=== PATIENT | female | born 1995 ===

== ENCOUNTER 2017-03-18 17:28 | Emergency (ER) | payer OTHER ==
[2017-03-18 15:18] VITALS: BMI 26.4
[2017-03-18 19:00] LABS: URINE BILIRUBIN NEGATIVE (NEGATIVE); URINE BLOOD NEGATIVE (NEGATIVE); URINE COLOR Straw (YELLOW); URINE GLUCOSE (UA) NORMAL (Normal); URINE KETONE TRACE mg/dL (NEGATIVE); URINE LEUKOCYTE ESTERASE NEG Leu/uL (Negative); URINE PROTEIN NEGATIVE (NEGATIVE); URINE UROBILINOGEN NORMAL mg/dL (0.2-1.0)
--- NOTE | 2017-03-18 19:41 | OBHP ---
Datetime: 03/18/2017 17:47 IP Admit Plan: Observation/Evaluation Admit Comment, IP Provider: 21 y.o. , LMP 11/20/16, JOSEY 08/14/17, EGA 18w 5d - transferred fr [facility] with c/o LAP onset 1100 hours, pain scale 8/10, pressure-like, intermittent. No al leviating or precipitating factors. Also, onset of LBP 1300 hours, sharp, stabbing, pain scale 10/10; not present at time of examination/ evaluation. (+) FM; denies LOF, VB. care: [facility]/ Epi; has had 3 visits. Next visit 03/21/17. Noted for treatment of UTI x 1 earlier P Ob: x 3: 2009, male, 6lb 3oz, [facility]; 2011, female, 7lb 10oz, [facility]; 2014, female, 6lb 11oz, [facility] [place]; no complications P MACHINE DRILLER: 9 x monthly x 3. (+) GC and chlamydia, 2011 PMH: H/O seizure - first diagnosed age 6/7. Was on anti-epileptic until 1 month ago. "I told him t he medication I was on was making me have more seizure; stopped 02/28/17 ... He's supposed to change i t". PSH: deenis NKDA Meds: PNV Soc Hx: denies tobacco, illicit drug or EtOH use. Lives in a [facility]/Child Assisted - FOB is involve d; does not live with patient. Unemployed. Fam Hx: Mother alive 42 y.o. no med issues. Father alive 58 y.o. ?myeloma?, alc abuse. PGM - Breas at cancer P.E.: as above. WD in NAD. Awake, alert, oriented to time, person and place. Pleasant and cooperat stacy. Assessment: 21 y.o. P3, 18w 5d, abdominal cramps - specullum fidings suggestive of bacterial vagin itis and vaginal candidiasis. FHR auscultated. Clinically stable. Plan: 1) Discharge home 2) Rx: Flagyl 500 mg 1 tab p.o. BID x 7days 3) Rx: Terazol 3 1 appl pV QHS x 3 days 4) Keep appointments Addendum: U/A negative Pelvic Type - PN: Adequate Extremities - PN: Normal Abdomen - PN: Normal Back - PN: Normal Breast - PN: Not Done Lungs - PN: Normal Heart - PN: Normal Thyroid - PN: Not Done Neurologic - PN: Normal HEENT - PN: Normal General - PN: Normal FHR - Baseline A Provider: 160 Contraction Comments Provider: none Comments, ACOG Physical Exam: Skin: warm, dry, intact HEENT: low set ears Back: no CVA tenderness Abdomen: gravid. Soft. Minimal left sided discomfort to deep palpation. Non tender in all other qu adrants. Fundal height 20 weeks Spec: moderate amount of thick, yellow/green discharge. No odor Extremities: no calf tenderness All other systems reviewed and are negative Gestation - Est Wks by US: 18w 5d EGA AdmitDate IP: 18.5 Vital Signs Provider: Reviewed; Within Normal Limits IP Chief Complaint: Maternal discomfort Dilatation, Provider: 0 Effacement, Provider: 0 Genitourinary Exam: Normal
== END 2017-03-18 19:32 | disposition home or self-care (01) ==
LOC: C.EROB 17:28
DX: O26.892 Other specified pregnancy related conditions, second trimester (principal); N89.8 Other specified noninflammatory disorders of vagina; R10.30 Lower abdominal pain, unspecified; Z3A.18 18 weeks gestation of pregnancy

== ENCOUNTER 2018-10-15 11:01 | Emergency (ER) | payer MEDICAID ==
[2018-10-15 11:02] VITALS: BMI 26.4
[2018-10-15 11:20] VITALS: TEMP 98.7
--- NOTE | 2018-10-15 11:34 | C.PDOC ---
History Of Present Illness 23 y/o female presents to the ED complaining of abdominal pain for the past week. Patient states she is on depo-provera and her last injection was in July. Reports she was scheduled to receive her next depo shot today but due to the cramping, decided to come to the ED instead. Otherwise patient denies any fevers, chills, vomiting, diarrhea, dysuria, or bowel/bladder incontinence. No recent vaginal bleeding. Time Seen by Provider: 10/15/18 11:22 Chief Complaint (Nursing): Abdominal Pain History Per: Patient History/Exam Limitations: no limitations Onset/Duration Of Symptoms: Days Current Symptoms Are (Timing): Still Present Severity: Mild Location Of Pain/Discomfort: Suprapubic Quality Of Discomfort: Cramping Abnormal Vaginal Bleeding: No Past Medical History Reviewed: Historical Data, Nursing Documentation, Vital Signs Vital Signs: Last Vital Signs Temp 98.7 F 10/15/18 11:16 Pulse 80 10/15/18 11:16 Resp 18 10/15/18 11:16 BP 116/44 L 10/15/18 11:16 Pulse Ox 98 10/15/18 11:16 - Medical History PMH: Seizures (since age 6; last seizure 2011) - [facility] Procedures OTHER SKIN & SUBQ I D (09/22/13) Family History: States: Unknown Family Hx - Social History Hx Tobacco Use: No Hx Alcohol Use: No Hx Substance Use: No - Immunization History Hx Tetanus Toxoid Vaccination: No Hx Influenza Vaccination: No Hx Pneumococcal Vaccination: No Review Of Systems Except As Marked, All Systems Reviewed And Found Negative. Constitutional: Negative for: Fever, Chills Gastrointestinal: Positive for: Abdominal Pain (cramping). Negative for: Nausea, Vomiting, Diarrhea, Hematochezia Genitourinary: Negative for: Dysuria, Frequency, Incontinence, Hematuria, Vaginal Bleeding Physical Exam - Physical Exam Appears: Non-toxic, No Acute Distress Skin: Warm, Dry Head: Atraumatic, Normacephalic Eye(s): bilateral: Normal Inspection, PERRL, EOMI Oral Mucosa: Moist Neck: Normal ROM Chest: Symmetrical Cardiovascular: Rhythm Regular, No Murmur Respiratory: Normal Breath Sounds, No Accessory Muscle Use Gastrointestinal/Abdominal: Soft, No Tenderness, No Distention, No Guarding Back: No CVA Tenderness Extremity: Normal ROM Extremity: Bilateral: Atraumatic, Normal Color And Temperature Neurological/Psych: Oriented x3, Normal Speech Gait: Steady ED Course And Treatment - Laboratory Results Result Diagrams: 10/15/18 12:15 10/15/18 12:15 Lab Interpretation: Normal Urine POC: Negative O2 Sat by Pulse Oximetry: 98 (RA) Pulse Ox Interpretation: Normal Progress Note: labs and urine ordered. Treated with ativan for possible seizue. Patient reports she stopped her keppra a few months ago. Treated wit keppra 1000 mg PO. On re-evaluation lungs clear in no distress. Patient advised to follow up with clinic to evaluate seizure disorder Reassessment Condition: Improved Medical Decision Making Medical Decision Making: Plan: Urine, u preg, and blood work ordered. Disposition Counseled Patient/Family Regarding: Studies Performed, Diagnosis, Need For Foll owup, Rx Given - Disposition Referrals: [facility] [Outside] [facility] [Outside] Disposition: HOME/ ROUTINE Disposition Time: 14:30 Condition: STABLE Prescriptions: Levetiracetam [Keppra] 500 mg PO BID #60 tablet Instructions: Seizures, Adult (DC), Acute Pelvic Pain (DC) Forms: [employer] (Kyrgyz) - POA Present On Arrival: None - Clinical Impression Clinical Impression: Abdominal pain - PA / VICE PRESIDENT FIXED INCOME / Resident Statement MD/DO has reviewed & agrees with the documentation as recorded. - Scribe Statement The provider has reviewed the documentation as recorded by the Scribe (Kristel De Santiago) All medical record entries made by the Scribe were at my direction and personally dictated by me. I have reviewed the chart and agree that the record accurately reflects my personal performance of the history, physical exam, medical decision making, and the department course for this patient. I have also personally directed, reviewed, and agree with the discharge instructions and disposition.
[2018-10-15 12:21] LABS: BASO % 0.3 % (0.0-2.0); EOS % 0.5 % (0.0-4.0); HEMOGLOBIN 13.3 g/dL (11.0-16.0); LYMPH # 1.8 K/uL (1.0-4.3); MEAN CELL VOLUME 83.7 fL (81.0-99.0); MEAN CORPUSCULAR HEMOGLOBIN 28.6 pg (27.0-31.0); MEAN CORPUSCULAR HGB CONC 34.1 g/dL (33.0-37.0); MEAN PLATELET VOLUME 8.6 fL (7.2-11.7); MONO # 0.3 K/uL (0.0-0.8); MONO % 5.6 % (0.0-10.0); NEUT # 3.9 K/uL (1.8-7.0); NEUT % 63.6 % (50.0-75.0); RBC 4.66 Mil/uL (3.80-5.20); RED CELL DISTRIBUTION WIDTH 13.2 % (11.5-14.5); WHITE BLOOD COUNT 6.1 K/uL (4.8-10.8)
[2018-10-15 12:30] LABS: SQUAMOUS EPITHIAL 9 /hpf (0-5); URINE BACTERIA OCC (<OCC); URINE BILIRUBIN NEGATIVE (NEGATIVE); URINE BLOOD NEGATIVE (NEGATIVE); URINE CLARITY Hazy (Clear); URINE COLOR Yellow (YELLOW); URINE GLUCOSE (UA) NORMAL (Normal); URINE PROTEIN NEGATIVE (NEGATIVE); URINE UROBILINOGEN NORMAL mg/dL (0.2-1.0)
[2018-10-15 12:32] LABS: HCG,QUALITATIVE URINE NEGATIVE (NEGATIVE)
[2018-10-15 12:37] LABS: URINE LEUKOCYTE ESTERASE 3+ Leu/uL (Negative)
[2018-10-15 12:51] VITALS: BP 126/74; PULSE 73; RESP 20
[2018-10-15 13:23] LABS: ALB/GLOB RATIO 1.5 (1.0-2.1); ALBUMIN 5.1 g/dL (3.5-5.0); AST/SGOT 29 U/L (14-36); BLOOD UREA NITROGEN 11 mg/dL (7-17); CALCIUM 10.1 mg/dl (8.6-10.4); GFR NON-AFRICAN AMERICAN > 60
[2018-10-15 13:24] LABS: ALT/SGPT 34 U/L (9-52)
[2018-10-15 14:23] VITALS: O2SAT 98
== END 2018-10-15 15:09 | disposition home or self-care (01) ==
LOC: C.ER 11:01
DX: R10.9 Unspecified abdominal pain (principal)
CPT/HCPCS: 80053; 81001; 84703; 85025; 96374; 99284; J2060

== ENCOUNTER 2018-12-10 11:02 | Emergency (ER) | payer MEDICAID ==
[2018-12-10 11:02] VITALS: BMI 26.4
[2018-12-10 11:25] VITALS: RESP 18; O2SAT 100
[2018-12-10] MEDS ORDERED: Sodium Chloride 0.9% 1,000 ML IV ONE (12:01)
[2018-12-10] MEDS ORDERED: Sodium Chloride 0.9% 1,000 ML ONE (12:18)
--- NOTE | 2018-12-10 12:31 | C.PDOC ---
History Of Present Illness 23 year old female, whose past medical history includes seizures, presents to the ED for evaluation of neck and lower back pain which began after she had a seizure yesterday. Patient states she had a seizure while in the shower, causing her to fall backwards and hit her neck and lower back regions. Patient has been compliant with Keppra BID and denies any recent changes in medications. Pt denies fever, chills, recent illness, urinary/bowel incontinence, or extremity numbness/weakness/deformity. Ambulatory in ED, not in any apparent distress. Time Seen by Provider: 12/10/18 11:29 Chief Complaint (Nursing): Back Pain History Per: Patient History/Exam Limitations: no limitations Onset/Duration Of Symptoms: Hrs Current Symptoms Are (Timing): Still Present Quality Of Discomfort: "Pain" Previous Symptoms: Back Pain, Neck Pain Associated Symptoms: denies: Incontinence, New Weakness, New Numbness Additional History Per: Patient Past Medical History Reviewed: Historical Data, Nursing Documentation, Vital Signs Vital Signs: Last Vital Signs Temp 97.8 F 12/10/18 11:18 Pulse 78 12/10/18 11:18 Resp 18 12/10/18 11:18 BP 107/67 12/10/18 11:18 Pulse Ox 100 12/10/18 11:18 - Medical History PMH: Seizures (since age 6; last seizure last night) Denies: Chronic Kidney Disease Surgical History: No Surg Hx - [facility] Procedures OTHER SKIN & SUBQ I D (09/22/13) Family History: States: Unknown Family Hx - Social History Hx Tobacco Use: No Hx Alcohol Use: No Hx Substance Use: No - Immunization History Hx Tetanus Toxoid Vaccination: No Hx Influenza Vaccination: No Hx Pneumococcal Vaccination: No Review Of Systems Constitutional: Negative for: Fever, Chills Genitourinary: Negative for: Incontinence Musculoskeletal: Positive for: Neck Pain, Back Pain Neurological: Negative for: Weakness, Numbness Physical Exam - Physical Exam Appears: Well, Non-toxic, No Acute Distress Skin: Normal Color, Warm, Dry, No Rash, No Ecchymosis Head: Atraumatic, Normacephalic Eye(s): bilateral: PERRL Nose: No Flaring Oral Mucosa: Moist Tongue: No Bite Throat: No Erythema, No Drooling Neck: Trachea Midline, Supple, Other (bilateral superior/occipital neck tenderness ) Chest: Symmetrical, No Deformity, No Tenderness, No Ecchymosis, No Subcutaneous Emphysema Cardiovascular: Rhythm Regular, No Murmur Respiratory: No Decreased Breath Sounds, No Accessory Muscle Use, No Rales, No Rhonchi, No Wheezing Gastrointestinal/Abdominal: Soft, No Tenderness, No Distention, No Guarding Back: No CVA Tenderness, No Vertebral Tenderness, Paraspinal Tenderness (left- sided, lumbar) Extremity: Normal ROM, No Tenderness, Capillary Refill (less than 2 seconds ), No Swelling Neurological/Psych: Oriented x3, Normal Speech, Normal Cognition, Normal Motor, Normal Sensation, Normal Reflexes ED Course And Treatment - Laboratory Results Result Diagrams: 12/10/18 12:45 12/10/18 12:45 Lab Interpretation: Normal Urine POC: Negative O2 Sat by Pulse Oximetry: 100 (on RA) Pulse Ox Interpretation: Normal - CT Scan/US CT head Other Rad Studies (CT/US): Read By Radiologist, Radiology Report Reviewed CT/US Interpretation: no acute abnormalities CT C-spine Other Rad Studies (CT/US): Read By Radiologist, Radiology Report Reviewed CT/US Interpretation: no acute fx or sublux CT L-spine Other Rad Studies (CT/US): Read By Radiologist, Radiology Report Reviewed CT/US Interpretation: (-) acute fx or sublus Progress Note: Bloodwork, urinalysis, CXR, CT Cervical Spine, CT Head, and CT Lumbar Spine ordered and reviewed. Ativan IVP, Toradol IVP, and IV Fluids given. Pt was OBS in ED for 3 hours and remained stable, no sz activity noted in ED. On re-eval, pt is afebrile, hemodynamicay stable. NOn-toxic. Ambulatory in Ed with stable gait. PulsEOx 99% RA. Head: AT/NC. Lungs: CTA B/L, BS equal B/L. CVS: (+)S1S2, reg., (-) murmur. ABd: benign, (-) guarding, (-) rebound. Neuorlogicaly intact. Blood work review and appears normal. Radiology reports review, no acute abnormalities. Pt has clinical findings c/w sz episode, cervical and lower back strain. Pt advised ,r ef. to F/u with Neuro in 2-3 days for re-eavl. return if any worsneing or new changes. Disposition Counseled Patient/Family Regarding: Studies Performed, Diagnosis, Need For Followup, Rx Given - Disposition Referrals: Heather Mosquera MD [Medical Doctor] - Disposition: HOME/ ROUTINE Disposition Time: 13:50 Condition: STABLE Additional Instructions: Continue seizure medication as prescribed Follow up with neurologist in 2-3 days for re-evaluation. return to ED if any worsening or new changes. 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 - Scribe Statement The provider has reviewed the documentation as recorded by the Scribe (Claudia Medina) All medical record entries made by the Scribe were at my direction and personally dictated by me. I have reviewed the chart and agree that the record accurately reflects my personal performance of the history, physical exam, medical decision making, and the department course for this patient. I have also personally directed, reviewed, and agree with the discharge instructions and disposition.
[2018-12-10 12:54] LABS: BASO % 0.1 % (0.0-2.0); EOS % 0.6 % (0.0-4.0); HEMOGLOBIN 12.5 g/dL (11.0-16.0); LYMPH # 1.7 K/uL (1.0-4.3); LYMPH % 32.2 % (20.0-40.0); MEAN CORPUSCULAR HEMOGLOBIN 28.5 pg (27.0-31.0); MEAN CORPUSCULAR HGB CONC 33.2 g/dL (33.0-37.0); MEAN PLATELET VOLUME 8.9 fL (7.2-11.7); MONO # 0.3 K/uL (0.0-0.8); NEUT # 3.3 K/uL (1.8-7.0); NEUT % 61.1 % (50.0-75.0); RBC 4.38 Mil/uL (3.80-5.20); WHITE BLOOD COUNT 5.4 K/uL (4.8-10.8)
[2018-12-10 12:55] LABS: MEAN CELL VOLUME 85.8 fL (81.0-99.0)
[2018-12-10 12:56] LABS: HCG,QUALITATIVE URINE NEGATIVE (NEGATIVE)
[2018-12-10 13:07] LABS: ALB/GLOB RATIO 1.6 (1.0-2.1); ALBUMIN 4.5 g/dL (3.5-5.0); ALT/SGPT 30 U/L (9-52); AST/SGOT 21 U/L (14-36); BLOOD UREA NITROGEN 14 mg/dL (7-17); CALCIUM 9.4 mg/dl (8.6-10.4); GFR NON-AFRICAN AMERICAN > 60
[2018-12-10 13:12] LABS: SQUAMOUS EPITHIAL 7 /hpf (0-5); URINE BACTERIA RARE (<OCC); URINE BILIRUBIN NEGATIVE (NEGATIVE); URINE BLOOD NEGATIVE (NEGATIVE); URINE CLARITY Clear (Clear); URINE COLOR Yellow (YELLOW); URINE GLUCOSE (UA) NORMAL (Normal); URINE LEUKOCYTE ESTERASE TRACE Leu/uL (Negative); URINE PROTEIN 1+ mg/dL (NEGATIVE); URINE UROBILINOGEN NORMAL mg/dL (0.2-1.0)
--- NOTE | 2018-12-10 13:48 | RAD ---
Date of service: 2018-12-10 12:04:21 HISTORY: Seizure COMPARISON: Comparison made with chest radiograph performed as part of a rib right rib series 11/13/2014 TECHNIQUE: Chest PA and lateral FINDINGS: LUNGS: No active pulmonary disease. PLEURA: No significant pleural effusion identified. No pneumothorax apparent. CARDIOVASCULAR: No aortic atherosclerotic calcification present. Normal cardiac size. No pulmonary vascular congestion. OSSEOUS STRUCTURES: No significant abnormalities. VISUALIZED UPPER ABDOMEN: Normal. OTHER FINDINGS: Bilateral nipple rings are present IMPRESSION: No active disease.
[2018-12-10 14:05] LABS: BARBITURATES, UR NEGATIVE (NEGATIVE); BENZODIAZEPINES, UR NEGATIVE (NEGATIVE); OPIATES, UR NEGATIVE (NEGATIVE); PHENCYCLIDINE, UR NEGATIVE (NEGATIVE)
--- NOTE | 2018-12-10 14:23 | CT ---
Date of service: 12/10/2018 PROCEDURE: CT Cervical Spine without contrast HISTORY: injury/sz COMPARISON: None available. TECHNIQUE: Axial computed tomography images were obtained of the cervical spine without the use of intravenous contrast. Coronal and sagittal reformatted images were created and reviewed. Radiation dose: Total exam DLP = 424.89 mGy-cm. This CT exam was performed using one or more of the following dose reduction techniques: Automated exposure control, adjustment of the mA and/or kV according to patient size, and/or use of iterative reconstruction technique. FINDINGS: VERTEBRAE: No fracture. Straightened curvature. No spondylolisthesis identified or spondylolysis. No destructive bony lesion. DISCS/SPINAL CANAL/NEURAL FORAMINA: No significant central canal or neural foraminal stenosis. Discs heights are grossly preserved. PARASPINAL SOFT TISSUES: Unremarkable. OTHER FINDINGS: None. IMPRESSION: Straightened curvature without fracture or spondylolisthesis identified. Craniocervical and C1-2 articulations appear within normal limits. No bony central canal or neural foraminal stenosis appreciable.
--- NOTE | 2018-12-10 14:23 | CT ---
Date of service: 12/10/2018 PROCEDURE: CT HEAD WITHOUT CONTRAST. HISTORY: sz, injury COMPARISON: None available. TECHNIQUE: Axial computed tomography images were obtained through the head/brain without intravenous contrast. Radiation dose: Total exam DLP = 1026.6 mGy-cm. This CT exam was performed using one or more of the following dose reduction techniques: Automated exposure control, adjustment of the mA and/or kV according to patient size, and/or use of iterative reconstruction technique. FINDINGS: Streak artifact limits evaluation of the skull base. HEMORRHAGE: No intracranial hemorrhage. BRAIN: No mass effect or edema. The lomeli-white matter differentiation appears intact. Please note that MRI with diffusion imaging is more sensitive in the detection of acute ischemic event. VENTRICLES: No hydrocephalus. CALVARIUM: Unremarkable. PARANASAL SINUSES: Unremarkable as visualized. No significant inflammatory changes. MASTOID AIR CELLS: Unremarkable as visualized. No inflammatory changes. OTHER FINDINGS: None. IMPRESSION: No acute intracranial pathology identified.
--- NOTE | 2018-12-10 14:29 | CT ---
Date of service: 12/10/2018 PROCEDURE: CT Lumbar Spine without contrast HISTORY: Injury--seizure COMPARISON: No prior study available for comparison the again the more these all swabs these findings the the the the TECHNIQUE: Axial computed tomography images were obtained of the lumbar spine without the use of intravenous contrast. Coronal and sagittal reformatted images were created and reviewed. Radiation dose: Total exam DLP = 493.34 mGy-cm. This CT exam was performed using one or more of the following dose reduction techniques: Automated exposure control, adjustment of the mA and/or kV according to patient size, and/or use of iterative reconstruction technique. FINDINGS: VERTEBRAE: Unremarkable. No fracture. Normal alignment. DISCS/SPINAL CANAL/NEURAL FORAMINA: L1-L2: Unremarkable. L2-L3: Unremarkable. L3-L4: Unremarkable. L4-L5: Disc space height relatively maintained. Minimal broad-based bulge of the L4-L5 level. Central canal and exit foramina appear adequate.. L5-S1: Minor posterior disc space narrowing. There is broad-based bulge of the posterior annulus seen along the superior margin of the disc with more focal central disc bulging along the inferior margin of the disc. Disc reaches the ventral surfaces of the descending S1 nerve roots and may also just reach the ventral surface of the thecal sac however no significant canal stenosis.. Exit foramina adequate.. PARASPINAL SOFT TISSUES: Unremarkable. OTHER FINDINGS: N note made of a few punctate calcifications lower pole collecting system left kidney with a least 1 punctate calcification lower pole collecting system right kidney is well. No evidence of hydronephrosis.. IMPRESSION: No acute fractures. Mild disc bulging changes L5-S1 and to a lesser degree L4-L5 levels as described.. .
[2018-12-10 15:00] VITALS: BP 108/63; PULSE 82; TEMP 98.3
== END 2018-12-10 15:08 | disposition home or self-care (01) ==
LOC: C.ER 11:02
DX: S16.1XXA Strain of muscle, fascia and tendon at neck level, initial encounter (principal); S39.012A Strain of muscle, fascia and tendon of lower back, initial encounter; W19.XXXA Unspecified fall, initial encounter
CPT/HCPCS: 70450; 71046; 72125; 72131; 80053; 80324; 80345; 80346; 80349; 80353; 80358; 80361; 81001; 83992; 84703; 85025; 96361; 96374; 96375; 99284; J1885; J2060; J7030

== ENCOUNTER 2019-03-11 09:52 | Emergency (ER) | payer MEDICAID ==
[2019-03-11 09:52] VITALS: BMI 26.4
[2019-03-11 10:05] VITALS: RESP 20; O2SAT 100
--- NOTE | 2019-03-11 10:48 | C.PDOC ---
History Of Present Illness 23 y/o female, , presents to the ER complaining of abdominal pain and vaginal bleeding. Patient states that her LMP was in December 2018. Patient reports that she was still taking her Depo injection at the time. Patient reports that she has vaginal bleeding for the past 2 months and she had positive blood test 1 month ago. She states that she started having vaginal bleeding and passed a clot after she had sex in the morning today. She notes that she has some dysuria. Denies having fever,chills,nausea, and vomiting. Time Seen by Provider: 03/11/19 10:12 Chief Complaint (Nursing): Female Genitourinary History Per: Patient History/Exam Limitations: no limitations Onset/Duration Of Symptoms: Days Current Symptoms Are (Timing): Still Present Severity: Moderate Past Medical History Reviewed: Historical Data, Nursing Documentation, Vital Signs Vital Signs: Last Vital Signs Temp 97.9 F 03/11/19 09:58 Pulse 84 03/11/19 09:58 Resp 20 03/11/19 09:58 BP 117/79 03/11/19 09:58 Pulse Ox 100 03/11/19 09:58 - Medical History PMH: Seizures (since age 6) Denies: Chronic Kidney Disease Surgical History: No Surg Hx - [facility] Procedures OTHER SKIN & SUBQ I D (09/22/13) Family History: States: No Known Family Hx - Social History Hx Tobacco Use: No Hx Alcohol Use: No Hx Substance Use: No - Immunization History Hx Tetanus Toxoid Vaccination: No Hx Influenza Vaccination: No Hx Pneumococcal Vaccination: No Review Of Systems Constitutional: Negative for: Fever, Chills Gastrointestinal: Positive for: Abdominal Pain. Negative for: Nausea, Vomiting Genitourinary: Positive for: Vaginal Bleeding. Negative for: Dysuria Physical Exam - Physical Exam Appears: Non-toxic, No Acute Distress Skin: Warm, Dry Head: Atraumatic, Normacephalic Eye(s): bilateral: Normal Inspection Oral Mucosa: Moist Neck: Supple Chest: Symmetrical Cardiovascular: Rhythm Regular, No Murmur Respiratory: Normal Breath Sounds, No Rales, No Rhonchi, No Wheezing Gastrointestinal/Abdominal: Bowel Sounds, Soft, Tenderness (mild suprapubic tenderness), No Distention, No Guarding, No Rebound Neurological/Psych: Oriented x3, Normal Speech, Normal Cognition ED Course And Treatment - Laboratory Results Result Diagrams: 03/11/19 10:59 03/11/19 10:59 O2 Sat by Pulse Oximetry: 100 (RA) Pulse Ox Interpretation: Normal Medical Decision Making Medical Decision Making: Plan: --Labs --UA 1143 discussed labs with patient and her partner at length; explained she is not with bhcg below 2, though may have been one month ago and miscarried. pt declines pelvic exam. will give pt labs to f/u with her clinical biostatistics director Disposition Counseled Patient/Family Regarding: Studies Performed, Diagnosis, Need For Followup - Disposition Referrals: [facility] [Outside] Disposition: HOME/ ROUTINE Disposition Time: 12:27 Condition: GOOD Additional Instructions: Follow up at [facility] with your stripper black and white. Return to ER for any worse symptoms. Instructions: Heavy Periods (DC) Forms: [employer] (Setswana), General Discharge Instructions - Clinical Impression Clinical Impression: Vaginal bleeding - PA / LICENSED REACTOR OPERATOR / Resident Statement MD/DO has reviewed & agrees with the documentation as recorded. - Scribe Statement The provider has reviewed the documentation as recorded by the Steve Metzger Provider Attestation All medical record entries made by the Shariibramu were at my direction and personally dictated by me. I have reviewed the chart and agree that the record accurately reflects my personal performance of the history, physical exam, medical decision making, and the department course for this patient. I have also personally directed, reviewed, and agree with the discharge instructions and disposition.
[2019-03-11 11:01] LABS: HCG,QUALITATIVE URINE NEGATIVE (NEGATIVE)
[2019-03-11 11:02] LABS: SQUAMOUS EPITHIAL < 1 /hpf (0-5); URINE BILIRUBIN NEGATIVE (NEGATIVE); URINE BLOOD 1+ (NEGATIVE); URINE CLARITY Clear (Clear); URINE COLOR Straw (YELLOW); URINE GLUCOSE (UA) NORMAL (Normal); URINE LEUKOCYTE ESTERASE NEG Leu/uL (Negative); URINE PROTEIN NEGATIVE (NEGATIVE); URINE UROBILINOGEN NORMAL mg/dL (0.2-1.0)
[2019-03-11 11:11] LABS: BASO % 0.2 % (0.0-2.0); EOS # 0.1 K/uL (0.0-0.7); HEMOGLOBIN 13.1 g/dL (11.0-16.0); LYMPH # 1.6 K/uL (1.0-4.3); LYMPH % 26.8 % (20.0-40.0); MEAN CELL VOLUME 87.4 fL (81.0-99.0); MEAN CORPUSCULAR HEMOGLOBIN 29.5 pg (27.0-31.0); MEAN CORPUSCULAR HGB CONC 33.8 g/dL (33.0-37.0); MEAN PLATELET VOLUME 8.8 fL (7.2-11.7); MONO # 0.4 K/uL (0.0-0.8); MONO % 6.3 % (0.0-10.0); NEUT % 65.7 % (50.0-75.0); NRBC % 0.1 % (0.0-2.0); RBC 4.43 Mil/uL (3.80-5.20); RED CELL DISTRIBUTION WIDTH 13.5 % (11.5-14.5)
[2019-03-11 11:21] LABS: ALB/GLOB RATIO 1.6 (1.0-2.1); ALBUMIN 4.7 g/dL (3.5-5.0); ALT/SGPT 21 U/L (9-52); AST/SGOT 23 U/L (14-36); BLOOD UREA NITROGEN 12 mg/dL (7-17); GFR NON-AFRICAN AMERICAN > 60
[2019-03-11 12:36] VITALS: BP 111/73; PULSE 69; TEMP 98.5
== END 2019-03-11 12:40 | disposition home or self-care (01) ==
LOC: C.ER 09:52
DX: N93.9 Abnormal uterine and vaginal bleeding, unspecified (principal)